=== PATIENT | male | born 1970 | race Caucasian/White ===

== ENCOUNTER 2021-06-27 21:49 | Emergency (ER) | payer MEDICAID ==
[~2021-06-27] VITALS: Ht 188 cm; Wt 93.4 kg
--- NOTE | 2021-06-27 21:53 | NUR ---
pt bib ra for c/p pt states it radiates down arms, denies sob.
--- NOTE | 2021-06-27 21:55 | NUR ---
Dr. Goldstein at bedside for MSe.
[2021-06-27] MEDS ORDERED: NITROGLYCERIN OINT 1 GM PACKET TP ONE ×2 (22:00→22:05)
[2021-06-27] MEDS ORDERED: ASPIRIN 81 MG TAB.CHEW PO ONE (22:00)
[2021-06-27] MEDS ORDERED: NITROGLYCERIN 0.4 MG/TAB BOTTLE SL ONE ×2 (22:00→22:04)
[2021-06-27] MEDS ORDERED: ASPIRIN 81 MG TAB.CHEW ONE (22:04)
[2021-06-27] MEDS ORDERED: METOPROLOL TARTRATE 5 MG/5 ML VIAL IVP ONE ×2 (22:21→22:30)
[2021-06-27 22:22] LABS: HEMATOCRIT 41.9 % (36.7-47.1); MEAN CORPUSCULAR HEMOGLOBIN 31.3 uug (23.8-33.4); MEAN CORPUSCULAR VOLUME 91.2 fL (73.0-96.2); PLATELET COUNT (AUTO) 239 K/uL (152-348)
[2021-06-27 22:29] LABS: CARBON DIOXIDE 20 mmol/L (21-32); CHLORIDE 105 mmol/L (98-107); CREATININE 0.8 mg/dL (0.6-1.3); GLUCOSE 107 mg/dL (74-106); POTASSIUM 3.8 mmol/L (3.5-5.1); UREA NITROGEN, BLOOD 12 mg/dL (7-18)
[2021-06-27] MEDS ORDERED: IV NORMAL SALINE 500 ML BAG IV ONE (22:30)
[2021-06-27] MEDS ORDERED: HYDROMORPHONE 1 MG/1 ML DISP.SYRIN IV ONE ×3 (22:30→23:30)
[2021-06-27] MEDS ORDERED: HYDROMORPHONE 1 MG/1 ML DISP.SYRIN ONE ×3 (22:31→23:12)
[2021-06-27 22:42] LABS: ALANINE AMINOTRANSFERASE 13 U/L (16-63); ALKALINE PHOSPHATASE 79 U/L (50-136); ASPARTATE AMINOTRANSFERASE 8 U/L (15-37); BILIRUBIN,DIRECT 0.1 mg/dL (0.0-0.2); BILIRUBIN,TOTAL 0.2 mg/dL (0.2-1.0); TOTAL PROTEIN, SERUM 7.1 g/dL (6.4-8.2)
--- NOTE | 2021-06-27 22:51 | NUR ---
ntg sl was given as follows: 2205 pain 6/10 bp 126/82 hr 95 2211 pain 5/10 bp 128/76 hr 106 2216 pain 4/10 bp 119/72 hr 103
[2021-06-27] MEDS ORDERED: ONDANSETRON 4 MG/2 ML VIAL ONE (23:19)
[2021-06-27] MEDS ORDERED: ONDANSETRON 4 MG/2 ML VIAL IV ONE (23:30)
[2021-06-28] MEDS ORDERED: HYDROMORPHONE 1 MG/1 ML DISP.SYRIN IV ONE ×5 (00:45→16:45)
[2021-06-28] MEDS ORDERED: HYDROMORPHONE 1 MG/1 ML DISP.SYRIN ONE ×5 (00:46→16:49)
--- NOTE | 2021-06-28 00:59 | NUR ---
pt states his pain is at a 4/10 he was medicated with Dilaudid 1mg.
--- NOTE | 2021-06-28 01:36 | NUR ---
[facility] cardiology Bren called back and is speaking with Dr. Goldstein.
--- NOTE | 2021-06-28 01:40 | NUR ---
call to [facility] nursing brake repair supervisor states there is no nurse for the pt, i informed Dr. Goldstein and we will call Anthony Castro
--- NOTE | 2021-06-28 01:49 | NUR ---
pt and his gf spoke with Dr. Goldstein and he wants to leave ama or go smoke. Dr. Goldstein said he would go smoke, pt's gf took him outside to go smoke.
--- NOTE | 2021-06-28 01:52 | NUR ---
call to [facility] spoke with Yuliya pattonassistant executive housekeeper she gave me the correct number for the transfer center at [phone].
--- NOTE | 2021-06-28 01:56 | NUR ---
pt returned to the er after smoking, pt placed back on the monitor.
--- NOTE | 2021-06-28 02:04 | NUR ---
spoke with Lanie at transfer center at [phone] she states to fax clinicals face sheet and covid test result to fax number [phone]
[2021-06-28] MEDS ORDERED: METOPROLOL TARTRATE 5 MG/5 ML VIAL IVP ONE ×2 (02:20→02:30)
--- NOTE | 2021-06-28 02:54 | NUR ---
Lanie from transfer center called [facility] I informed this to Dr. Goldstein. Romi portillo informed so she can contact [facility] case briefer.
--- NOTE | 2021-06-28 03:23 | NUR ---
fax of clinicals was sent to [facility] at [phone]. williams nathan at phone [phone]
[2021-06-28] MEDS ORDERED: NICOTINE 21 MG/24HR PATCH TD ONE (03:26)
[2021-06-28] MEDS: NICOTINE 21 MG/24HR PATCH TD SCH ×2 (03:30→08:24)
--- NOTE | 2021-06-28 05:01 | NUR ---
pt resting with eyes closed, when I re-check the bp pt wakes up and denies any pain.
--- NOTE | 2021-06-28 05:38 | NUR ---
Still waiting to hear from insurance.
[2021-06-28] MEDS ORDERED: ACETAMINOPHEN ES 500 MG TABLET ONE (06:20)
[2021-06-28] MEDS ORDERED: ACETAMINOPHEN ES 500 MG TABLET PO ONE (06:30)
--- NOTE | 2021-06-28 06:41 | NUR ---
pt c/o c/p Dr. Pagan made aware, ekg is performed and shown to her.
[2021-06-28] MEDS ORDERED: ONDANSETRON 4 MG/2 ML VIAL IV ONE ×2 (06:45→16:45)
[2021-06-28] MEDS ORDERED: ONDANSETRON 4 MG/2 ML VIAL ONE ×2 (06:49→16:49)
[2021-06-28] MEDS ORDERED: SWABABLE VALVE TRANSFER SET EA MC ONE (07:53)
[2021-06-28] MEDS ORDERED: IV NORMAL SALINE 250 ML IV ONE (07:53)
[2021-06-28] MEDS ORDERED: IOHEXOL 350 100 ML INFUS..BTL ONE (07:53)
--- NOTE | 2021-06-28 07:56 | NUR ---
DR TAMAYO EVALUATED THE PT.
[2021-06-28] MEDS ORDERED: ATORVASTATIN 40 MG TABLET PO ONE (08:00)
[2021-06-28] MEDS ORDERED: METOPROLOL TARTRATE 50 MG TABLET PO ONE (08:00)
[2021-06-28] MEDS ORDERED: NITROGLYCERIN 0.4MG/HR (=16 CM2) PATCH TD ONE ×2 (08:00→08:19)
[2021-06-28] MEDS ORDERED: ASPIRIN 81 MG TAB.CHEW PO ONE (08:00)
[2021-06-28] MEDS ORDERED: METOPROLOL TARTRATE 50 MG TABLET ONE (08:19)
[2021-06-28] MEDS ORDERED: ASPIRIN 81 MG TAB.CHEW ONE (08:20)
[2021-06-28] MEDS ORDERED: ATORVASTATIN 40 MG TABLET ONE (08:20)
[2021-06-28 08:22] VITALS: BP 131/71
[2021-06-28] MEDS ORDERED: HEPARIN SODIUM,PORCINE 5,000 UNITS/ML VIAL ONE (08:57)
[2021-06-28] MEDS ORDERED: HEPARIN/D5W DRIP 500 ML ONE (08:57)
[2021-06-28] MEDS ORDERED: HEPARIN/D5W DRIP 500 ML IV PRN (09:00)
[2021-06-28] MEDS ORDERED: HEPARIN SODIUM,PORCINE/PF 100 UNIT/ML, 5ML SYR XX ONE (09:30)
--- NOTE | 2021-06-28 10:09 | NUR ---
DR GUILLAUME TALKED TO VESNA TAYLOR RN FROM [facility] ER. PT IS GOING TO BE ACCEPTED TO [facility]ER DR BETH AYON. [facility] GOING TO BE SENT [facility] TO TRANSFER THE PT. THEY WILL CALL WITH JEFF TIME.
[2021-06-28 10:40] LABS: *AMPHETAMINE, URINE NEGATIVE (NEGATIVE); *CANNABINOID, URINE NEGATIVE (NEGATIVE); *COCCAINE, URINE POSITIVE (NEGATIVE); *OPIATE, URINE POSITIVE (NEGATIVE); *PHENCYCLIDINE SCREEN,URINE NEGATIVE (NEGATIVE)
--- NOTE | 2021-06-28 12:14 | NUR ---
DR GUILLAUME TALKED TO DR CAMPOS. [facility] ARE STILL LOOKING FOR AVAILABLE TELEMETRY BED.
[2021-06-28] MEDS ORDERED: MISCELLANEOUS MED PO ONE (12:30)
[2021-06-28] MEDS ORDERED: TICAGRELOR 90 MG TABLET PO ONE (13:00)
--- NOTE | 2021-06-28 15:03 | NUR ---
PT IS RESTING IN BED COMFORTABLY. PT DENIES PAIN AT THIS TIME. NO N/V, NO SOB. DR GUILLAUME RE-EVALUATED THE PT.
[2021-06-28] MEDS ORDERED: IV NORMAL SALINE 500 ML BAG IV ONE (16:30)
--- NOTE | 2021-06-28 18:34 | NUR ---
PT WAS TRANSFERED TOT [facility]IA [facility]. REPORT WAS GIVEN TO AMBULANCE RN.
== END 2021-06-28 18:47 | disposition short-term general hospital (02) ==
LOC: ER 21:51
DX: I21.4 Non-ST elevation (NSTEMI) myocardial infarction (principal); F17.210 Nicotine dependence, cigarettes, uncomplicated; Z20.822 Contact with and (suspected) exposure to COVID-19; Z82.49 Family history of ischemic heart disease and other diseases of the circulatory system; E87.2 Acidosis; R91.8 Other nonspecific abnormal finding of lung field
CPT/HCPCS: 36415 ×2; 71045; 71275; 80048; 80076; 80307; 83880; 84484 ×3; 85025; 85379; 85730; 87426; 93005 ×3; 96361; 96374; 96375; 96376 ×2; 99291; J1170 ×8; J1644 ×2; J2405 ×3; J3490 ×2; J7040 ×3; Q9967; A4663; A9150